=== PATIENT | female | born 1955 | race Caucasian/White ===

== ENCOUNTER 2016-09-24 12:31 | Inpatient (IN) | payer BC, OTHER ==
[~2016-09-24] VITALS: Ht 160 cm; Wt 65.0 kg
[2016-09-24 13:04] LABS: MEAN CORPUSCULAR HEMOGLOBIN 29.5 PG (26.0-34.0); MEAN CORPUSCULAR HGB CONC 33.9 g/dL (31.0-37.0); MEAN CORPUSCULAR VOLUME 87 FL (80-100); MEAN PLATELET VOLUME 10.7 FL (6.0-9.5); PLATELET COUNT 231 10^3uL (150-450); WHITE BLOOD COUNT 11.43 10^3uL (4.0-11.0)
[2016-09-24 13:14] LABS: BAND NEUTROPHILS % 5 % (0-6); LYMPHOCYTES # 0.2 #; SEGMENTED NEUTROPHILS % 89 % (51-67)
[2016-09-24 13:15] LABS: EOSINOPHILS % 2 % (0-4); MONOCYTES # 0.2 #; MONOCYTES % 2 % (3-11); RBC MORPH NORMAL (NORMAL); TOTAL CELLS COUNTED 100
[2016-09-24 13:33] LABS: ALBUMIN 4.4 g/dL (3.4-5.0); CALCULATED IONIZED CALCIUM 3.8 mg/dL (3.8-4.6)
[2016-09-24 15:18] LABS: INFLUENZA VIRUS TYPE A ANTIBOD Negative (NEGATIVE); INFLUENZA VIRUS TYPE B ANTIBOD Negative (NEGATIVE)
[2016-09-24 15:49] VITALS: BP 130/70
[2016-09-24] MEDS ORDERED: NS FLUSH 10 ML PRN IV (18:00)
[2016-09-24] MEDS ORDERED: NS FLUSH 3 ML PRN IV (18:00)
[2016-09-24] MEDS ORDERED: ACETAMINOPHEN 325 MG TAB (TYLENOL) PO PRN (18:10)
[2016-09-24] MEDS ORDERED: IBUPROFEN 600 MG (MOTRIN) TAB PO PRN (18:10)
[2016-09-24] MEDS ORDERED: ONDANSETRON 2 MG/ML (Z0FRAN) 2 ML VIAL IV PRN (18:10)
[2016-09-24] MEDS ORDERED: CALCIUM CARBONATE CHEWABLE 300 MG (TUMS) TABLET PO PRN (18:10)
[2016-09-24] MEDS ORDERED: cefTRIAXone 1 GM (ROCEPHIN) VIAL ONE (18:26)
[2016-09-24] MEDS ORDERED: SODIUM CHLORIDE 50 ML IV ONE (18:26)
[2016-09-24] MEDS: cefTRIAXone SODIUM 1,000 MG in SODIUM CHLORIDE 50 ML IV SCH (18:32)
[2016-09-24] MEDS: metroNIDAZOLE 500 MG (FLAGYL) TABLET PO SCH (22:21)
[2016-09-25 00:28] VITALS: BP 136/80
[2016-09-25] MEDS: metroNIDAZOLE 500 MG (FLAGYL) TABLET PO SCH ×3 (05:02→20:38)
[2016-09-25 06:33] LABS: BASOPHILS % (AUTO) 0 % (0-2); EOSINOPHILS # (AUTO) 0.3 10^3uL; EOSINOPHILS % (AUTO) 6 % (0-4); MEAN CORPUSCULAR HEMOGLOBIN 29.8 PG (26.0-34.0); MEAN CORPUSCULAR HGB CONC 32.9 g/dL (31.0-37.0); MEAN CORPUSCULAR VOLUME 91 FL (80-100); MEAN PLATELET VOLUME 10.9 FL (6.0-9.5); MONOCYTES # (AUTO) 0.3 X10^3; MONOCYTES % (AUTO) 7 % (3-11); NEUTROPHILS # (AUTO) 3.3 X10^3; NEUTROPHILS % (AUTO) 68 % (51-67); PLATELET COUNT 176 10^3uL (150-450); WHITE BLOOD COUNT 4.89 10^3uL (4.0-11.0)
[2016-09-25 07:23] LABS: ALBUMIN 2.9 g/dL (3.4-5.0); ANION GAP 10.6 MEQ/L (3-15)
[2016-09-25 08:00] VITALS: BP 112/62
[2016-09-25] MEDS: NS FLUSH 3 ML DAILY IV SCH (08:16)
[2016-09-25] MEDS: AZITHROMYCIN 250 MG TAB (ZITHROMAX) PO SCH (08:16)
[2016-09-25] MEDS: ENOXAPARIN 40 MG/0.4 ML (LOVENOX) SYR SC SCH (08:16)
[2016-09-25 16:00] VITALS: BP 118/62
[2016-09-25] MEDS: cefTRIAXone SODIUM 1,000 MG in SODIUM CHLORIDE 50 ML IV SCH (17:20)
[2016-09-25] MEDS: POTASSIUM CHLORIDE ER 10 MEQ CAPSULE PO SCH (17:21)
[2016-09-25] MEDS ORDERED: ALBUTEROL HFA (VENTOLIN HFA) COMMON CANNISTER IH PRN (19:50)
[2016-09-25] MEDS ORDERED: MIRTAZAPINE 15 MG (REMERON) TABLET PO SCH (21:00)
[2016-09-25] MEDS ORDERED: ATORVASTATIN 40 MG (LIPITOR) TABLET PO SCH (21:00)
[2016-09-26 00:26] VITALS: BP 110/72
[2016-09-26] MEDS: metroNIDAZOLE 500 MG (FLAGYL) TABLET PO SCH (04:59)
[2016-09-26 06:26] LABS: BASOPHILS % (AUTO) 0 % (0-2); EOSINOPHILS # (AUTO) 0.3 10^3uL; EOSINOPHILS % (AUTO) 6 % (0-4); LYMPHOCYTES # (AUTO) 0.9 X10^3; MEAN CORPUSCULAR HEMOGLOBIN 29.2 PG (26.0-34.0); MEAN CORPUSCULAR HGB CONC 32.2 g/dL (31.0-37.0); MEAN CORPUSCULAR VOLUME 91 FL (80-100); MEAN PLATELET VOLUME 10.3 FL (6.0-9.5); MONOCYTES # (AUTO) 0.5 X10^3; MONOCYTES % (AUTO) 10 % (3-11); NEUTROPHILS % (AUTO) 64 % (51-67); PLATELET COUNT 206 10^3uL (150-450); WHITE BLOOD COUNT 4.69 10^3uL (4.0-11.0)
[2016-09-26 06:59] LABS: ALBUMIN 3.6 g/dL (3.4-5.0); ANION GAP 12.8 MEQ/L (3-15); PHOSPHORUS 3.4 mg/dL (2.4-4.9)
[2016-09-26 08:37] VITALS: BP 178/48
[2016-09-26] MEDS: POTASSIUM CHLORIDE ER 10 MEQ CAPSULE PO SCH (08:37)
[2016-09-26] MEDS: AZITHROMYCIN 250 MG TAB (ZITHROMAX) PO SCH (08:37)
[2016-09-26] MEDS: ENOXAPARIN 40 MG/0.4 ML (LOVENOX) SYR SC SCH (08:46)
[2016-09-26] MEDS: NS FLUSH 3 ML DAILY IV SCH (09:00)
[2016-09-26] MEDS ORDERED: CITALOPRAM 10 MG (CELEXA) TABLET PO SCH (09:00)
== END 2016-09-26 11:07 | disposition home or self-care (01) | DRG 871 ==
LOC: ED 12:33 → MED/SURG 15:10
PROVIDERS: ADMIT Family Medicine; ATTEND Family Medicine
DX: A41.9 Sepsis, unspecified organism (principal); J18.9 Pneumonia, unspecified organism; A08.11 Acute gastroenteropathy due to Norwalk agent; A04.7 Enterocolitis due to Clostridium difficile; R51 Headache; F32.9 Major depressive disorder, single episode, unspecified; E78.5 Hyperlipidemia, unspecified; K21.9 Gastro-esophageal reflux disease without esophagitis; N39.3 Stress incontinence (female) (male); M81.0 Age-related osteoporosis without current pathological fracture
CPT/HCPCS: 36415; 71020; 80053; 80069; 83605; 83690; 83735; 84443; 84484; 85025; 86140; 86713; 87040; 87502; 87507; 93005; 93010; 96360; 96361; 99284